=== PATIENT | male | born 1965 | race Caucasian/White ===

== ENCOUNTER → 2019-09-11 | Outpatient (CLI) | payer MEDICARE, MEDICAID ==
[~2019-09-11] MED LIST: METO-333 PO; METO25TA2 PO; ONDA4TAB2 PO; ONDN4T PO; OXYB5TAB13 PO; OXYB5TAB9 PO; OXYC-12 PO
--- NOTE | 2019-09-11 15:33 | Diagnostic Imaging Report ---
INDICATION: Fall with left ankle pain. TIME OF EXAM: 2:31 PM. TECHNIQUE/COMPARISON: Three views of the left ankle were obtained and compared with the prior study from 01/05/2013. FINDINGS: There is widening of the superior ankle mortise medial side. This is similar to the study dating back to 2012. Chronic calcifications within the Achilles tendon are noted. There are post surgical changes with subtalar arthrodesis. No fractures are identified. IMPRESSION: Chronic changes to the left ankle and subtalar joint. No acute bony abnormality is detected. Dictated by: Dictated on workstation # [id number]
== END ==
LOC: RAD 14:14
PROVIDERS: ATTEND Internal Medicine
DX: M25.572 Pain in left ankle and joints of left foot (principal); I10 Essential (primary) hypertension
CPT/HCPCS: 73610

== ENCOUNTER 2019-12-03 18:37 | Emergency (ER) | payer MEDICARE, MEDICAID ==
[~2019-12-03] VITALS: Ht 170 cm; Wt 77.0 kg
[2019-12-03] MEDS ORDERED: NS IV 1000 ML 1,000 ML IV SCH (19:45)
--- NOTE | 2019-12-03 19:52 | ED GU-Female ---
General Chief Complaint: - Urinary Stated Complaint: UNABLE TO URINATE/ABD SWELLING Nursing Triage Note: PT IS A [place] CLIENT, HIGH FUNCTIONING, STAFF STATES CAN'T URINATE, ABD DISTENDED, ABD PAIN STARTED MONDAY. STAFF CAN BE REACHED AT [phone] Nursing Sepsis Screen: No Definite Risk Source: patient Exam Limitations: no limitations History of Present Illness Date Seen by Provider: Dec 03, 2019 Time Seen by Provider: 19:50 Initial Comments To ER by [facility] staff with reports of inability to urinate with abdominal distention that began 2 days ago. He is high functioning mentally handicapped. Timing/Duration: constant Severity/Quality: moderate Location: other Radiation: none Activities at Onset: none Prior Genitourinary Problems: none Associated Symptoms: denies symptoms Allergies and Home Medications Allergies Coded Allergies: No Known Drug Allergies (Unverified , 05/20/14) Home Medications Metoprolol Tartrate 25 Mg Tablet, 25 MG PO BID, (Reported) Oxybutynin Chloride 5 Mg Tablet, 5 MG PO BID, (Reported) Patient Home Medication List Home Medication List Reviewed: Yes Review of Systems Review of Systems Constitutional: see HPI EENTM: see HPI Respiratory: no symptoms reported Cardiovascular: no symptoms reported Gastrointestinal: other (eyes much abdominal pain) Genitourinary: no symptoms reported Musculoskeletal: no symptoms reported Skin: no symptoms reported Psychiatric/Neurological: No Symptoms Reported Endocrine: No Symptoms Reported Hematologic/Lymphatic: No Symptoms Reported Past Goagaro-Irgrvu-Fzborw Hx Patient Social History Alcohol Use: Denies Use Recreational Drug Use: No Smoking Status: Never a Smoker Recent Foreign Travel: No Contact w/Someone Who Travel: No Recent Infectious Disease Expo: No Recent Hopitalizations: No Physical Abuse: No Sexual Abuse: No Mistreated: No Fear: No Immunizations Up To Date Tetanus Booster (TDap): Unknown PED Vaccines UTD: Yes Date of Pneumonia Vaccine: Nov 21, 2011 Seasonal Allergies Seasonal Allergies: Yes Past Medical History Surgeries: Yes Abdominal, Appendectomy, Bowel Surgery, Orthopedic Respiratory: Yes Pneumonia Cardiac: Yes Hypertension Neurological: Yes Cerebral Palsy, Developmental Disorder Reproductive Disorders: No Sexually Transmitted Disease: No HIV/AIDS: No Genitourinary: Yes (OVERACTIVE BLADDER) Gastrointestinal: Yes Obstructive Bowel Musculoskeletal: Yes (CEREBRAL PALSY; WALKS WITH WALKER) Contracture Endocrine: No HEENT: No Loss of Vision: Denies Hearing Impairment: Denies Cancer: No Psychosocial: No Integumentary: No Blood Disorders: No Adverse Reaction/Blood Tranf: No Family Medical History Alcoholism 19 FATHER 19 MOTHER G8 BROTHER G8 SISTER Cardiovascular disease 19 MOTHER Drug abuse G8 BROTHER G8 SISTER FH: COPD (chronic obstructive pulmonary disease) 19 FATHER 19 MOTHER FH: emphysema 19 MOTHER Hypertension G8 BROTHER Diabetes Physical Exam Vital Signs Vital Signs - First Documented 12/03/19 19:19 Temp 37.0 Pulse 90 Resp 22 B/P (MAP) 172/94 (120) Pulse Ox 96 O2 Delivery Room Air Capillary Refill : Less Than 3 Seconds Height, Weight, BMI Height: 5'1.00" Weight: 168lbs. 2.0oz. [id number]; 26.00 BMI Method:Stated General Appearance: WD/WN, no apparent distress HEENT: PERRL/EOMI, normal ENT inspection Neck: non-tender, full range of motion Respiratory: lungs clear, normal breath sounds, no respiratory distress, no accessory muscle use Gastrointestinal: non tender, soft, distended, other (high-pitched bowel sounds, abdominal distention, minimal tenderness.) Extremities: normal range of motion, non-tender Neurologic/Psychiatric: alert, normal mood/affect, oriented x 3 Skin: normal color, warm/dry Progress/Results/Core Measures Suspected Sepsis Recent Fever Within 48 Hours: No Infection Criteria Present: None New/Unexplained Altered Menta: No Sepsis Screen: No Definite Risk SIRS Temperature: Pulse: 90 Respiratory Rate: 22 Laboratory Tests 12/03/19 19:30: White Blood Count 13.1H Blood Pressure 172 /94 Mean: 120 Laboratory Tests 12/03/19 19:30: Creatinine 1.03, Platelet Count 235 Results/Orders Lab Results Laboratory Tests Test 12/03/19 19:25 12/03/19 19:30 Range/Units Urine Color YELLOW Urine Clarity CLEAR Urine pH 7.5 5-9 Urine Specific [place] 1.015 L 1.016-1.022 Urine Protein NEGATIVE NEGATIVE Urine Glucose (UA) 1+ H NEGATIVE Urine Ketones TRACE H NEGATIVE Urine Nitrite NEGATIVE NEGATIVE Urine Bilirubin NEGATIVE NEGATIVE Urine Urobilinogen 1.0 < = 1.0 MG/DL Urine Leukocyte Esterase NEGATIVE NEGATIVE Urine RBC (Auto) NEGATIVE NEGATIVE Urine RBC 0-2 /HPF Urine WBC 0-2 /HPF Urine Crystals PRESENT H /LPF Urine Amorphous Sediment FEW LAUREN PHOSPHATE H /LPF Urine Bacteria TRACE /HPF Urine Casts NONE /LPF Urine Mucus NEGATIVE /LPF Urine Culture Indicated NO White Blood Count 13.1 H 4.3-11.0 10^3/uL Red Blood Count 5.05 4.30-5.52 10^6/uL Hemoglobin 14.6 13.3-17.7 g/dL Hematocrit 44 40-54 % Mean Corpuscular Volume 88 80-99 fL Mean Corpuscular Hemoglobin 29 25-34 pg Mean Corpuscular Hemoglobin Concent 33 32-36 g/dL Red Cell Distribution Width 12.7 10.0-14.5 % Platelet Count 235 130-400 10^3/uL Mean Platelet Volume 9.8 9.0-12.2 fL Immature Granulocyte % (Auto) 1 % Neutrophils (%) (Auto) 80 H 42-75 % Lymphocytes (%) (Auto) 11 L 12-44 % Monocytes (%) (Auto) 8 0-12 % Eosinophils (%) (Auto) 1 0-10 % Basophils (%) (Auto) 0 0-10 % Neutrophils # (Auto) 10.4 H 1.8-7.8 10^3/uL Lymphocytes # (Auto) 1.5 1.0-4.0 10^3/uL Monocytes # (Auto) 1.0 0.0-1.0 10^3/uL Eosinophils # (Auto) 0.1 0.0-0.3 10^3/uL Basophils # (Auto) 0.0 0.0-0.1 10^3/uL Immature Granulocyte # (Auto) 0.1 0.0-0.1 10^3/uL Sodium Level 139 135-145 MMOL/L Potassium Level 3.8 3.6-5.0 MMOL/L Chloride Level 102 98-107 MMOL/L Carbon Dioxide Level 27 21-32 MMOL/L Anion Gap 10 5-14 MMOL/L Blood Urea Nitrogen 14 7-18 MG/DL Creatinine 1.03 0.60-1.30 MG/DL Estimat Glomerular Filtration Rate > 60 BUN/Creatinine Ratio 14 Glucose Level 172 H 70-105 MG/DL Calcium Level 9.5 8.5-10.1 MG/DL My Orders Orders - ANTONIO BUI QUALITY CONTROL ANALYST Cbc With Automated Diff (12/03/19 19:19) Basic Metabolic Panel (12/03/19 19:19) Ua Culture If Indicated (12/03/19 19:19) [place] Cath (12/03/19 19:19) Ed Iv/Invasive Line Start (12/03/19 19:29) Ct Abdomen/Pelvis Wo (12/03/19 19:29) Ns Iv 1000 Ml (Sodium Chloride 0.9%) (12/03/19 19:45) Diatrizoate Meglum/Sodium 37% (Gastrogra (12/03/19 21:45) Medications Given in ED Current Medications Medications Dose Ordered Sig/Brian Route Start Time Stop Time Status Last Admin Dose Admin Diatrizoate Meglum/ Diatrizoate Sod 120 ml ONCE ONCE PO 12/03/19 21:45 12/03/19 21:46 DC 12/03/19 21:53 30 ML Vital Signs/I&O 12/03/19 19:19 Temp 37.0 Pulse 90 Resp 22 B/P (MAP) 172/94 (120) Pulse Ox 96 O2 Delivery Room Air Capillary Refill : Less Than 3 Seconds Blood Pressure Mean: 120 Departure Communication (Admissions) 11/04/11-patient had 3 large bowel movements in the emergency room. Impression Primary Impression: Constipation Qualified Codes: K59.00 - Constipation, unspecified Disposition: HOME, SELF-CARE Condition: Stable Admissions Decision to Admit Reason: Admit from ER (General) Departure-Patient Inst. Decision time for Depature: 22:10 Referrals: JULY BRONSON DO (PCP/Family) Primary Care Physician Patient Instructions: Constipation, Adult (DC) Add. Discharge Instructions: All discharge instructions reviewed with patient and/or family. Voiced underst anding. Continue home meds as prescribed. Drink plenty of fluids and follow up with your doctor in a couple of days. ANTONIO BUI QUALITY CONTROL ANALYST Dec 03, 2019 19:52
[2019-12-03 20:01] LABS: BILIRUBIN,URINE NEGATIVE (NEGATIVE); CLARITY,URINE CLEAR; COLOR,URINE YELLOW; GLUCOSE, URINE (UA) 1+ (NEGATIVE); KETONES,URINE TRACE (NEGATIVE); LEUKOCYTE ESTERASE ,URINE NEGATIVE (NEGATIVE); NITRITE,URINE NEGATIVE (NEGATIVE); PH,URINE 7.5 (5-9); PROTEIN,URINE NEGATIVE (NEGATIVE)
[2019-12-03 20:05] LABS: BASOPHILS % (AUTO) 0 % (0-10); EOSINOPHILS # (AUTO) 0.1 10^3/uL (0.0-0.3); EOSINOPHILS % (AUTO) 1 % (0-10); HEMATOCRIT 44 % (40-54); HEMOGLOBIN 14.6 g/dL (13.3-17.7); LYMPHOCYTES # (AUTO) 1.5 10^3/uL (1.0-4.0); LYMPHOCYTES % (AUTO) 11 % (12-44); MEAN CORPUSCULAR HEMOGLOBIN 29 pg (25-34); MEAN CORPUSCULAR HGB CONC 33 g/dL (32-36); MEAN CORPUSCULAR VOLUME 88 fL (80-99); MEAN PLATELET VOLUME 9.8 fL (9.0-12.2); MONOCYTES % (AUTO) 8 % (0-12); NEUTROPHILS # (AUTO) 10.4 10^3/uL (1.8-7.8); NEUTROPHILS % (AUTO) 80 % (42-75); PLATELET COUNT 235 10^3/uL (130-400); WHITE BLOOD COUNT 13.1 10^3/uL (4.3-11.0)
[2019-12-03 20:19] LABS: AMORPHOUS SEDIMENT,UR FEW AMOR PHOSPHATE /LPF; BACTERIA,URINE TRACE /HPF; RBC,URINE 0-2 /HPF; WBC,URINE 0-2 /HPF
[2019-12-03 20:27] LABS: CALCIUM 9.5 MG/DL (8.5-10.1)
[2019-12-03 20:28] LABS: GLUCOSE 172 MG/DL (70-105)
[2019-12-03 20:29] LABS: CARBON DIOXIDE 27 MMOL/L (21-32)
[2019-12-03 20:32] LABS: CREATININE SERUM 1.03 MG/DL (0.60-1.30); GFR ESTIMATED > 60
[2019-12-03 20:33] LABS: BUN/CREATININE RATIO 14
[2019-12-03 21:10] LABS: CHLORIDE 102 MMOL/L (98-107); POTASSIUM 3.8 MMOL/L (3.6-5.0); SODIUM 139 MMOL/L (135-145)
[2019-12-03] MEDS ORDERED: DIATRIZOATE MEGLUM/SODIUM 37% 120 ML (GASTROGRAFIN) PO ONE (21:45)
--- NOTE | 2019-12-03 22:06 | Diagnostic Imaging Report ---
PROCEDURE: CT abdomen and pelvis without contrast. TECHNIQUE: Multiple contiguous axial images were obtained through the abdomen and pelvis without the use of intravenous contrast. Auto Exposure Controls were utilized during the CT exam to meet ALARA standards for radiation dose reduction. INDICATION: Urinary dysfunction COMPARISON: 02/27/2017 FINDINGS: The lung bases are clear. Gallbladder and solid organs, vascular structures and bowel unremarkable. There is no free air or free fluid. There is no lymphadenopathy. Urinary bladder is decompressed with a [place] catheter. There is no overt prostate enlargement. No inflammation is seen. No obvious hernia is identified. Osseous structures are age-appropriate. IMPRESSION: Urinary bladder decompressed with a [place]on catheter, otherwise unremarkable CT abdomen and pelvis. Dictated by: Dictated on workstation # [id number]
[2019-12-03 22:49] VITALS: BP 145/89
== END 2019-12-03 22:49 | disposition home or self-care (01) ==
LOC: EDUNIT# 18:37 → ER 18:38
DX: K59.00 Constipation, unspecified (principal); I10 Essential (primary) hypertension; Z83.3 Family history of diabetes mellitus; Z82.49 Family history of ischemic heart disease and other diseases of the circulatory system
CPT/HCPCS: 36415; 51702; 74176; 80048; 81000; 85025